=== PATIENT | female | born 1985 | race Caucasian/White ===

== ENCOUNTER 2020-01-17 06:04 | Inpatient (IN) | payer OTHER, SELFPAY ==
[2020-01-17] VITALS (90 sets, daily range): BP systolic 95–136; BP diastolic 40–93; PULSE 54–101; RESP 15–16; TEMP 36.3–36.9; O2SAT 97–100; BMI 31.4
--- NOTE | 2020-01-17 06:04 | LDADM ---
This patient, Michelle Berry, was admitted to Labor/Delivery/Recovery 106 on 01/17/20 at 06:04. Plans for labor, pain management and were discussed with patient. Patient/family oriented to hospital policies and general routines including ID bracelet, bed and alarms, visiting hours, pain management, procedures, bathroom and other care routines, personal items, smoking policy, room service/diet and guest tray routines, security routines, and visiting hours. Patient/Family are encouraged to report perceived risks to care and to ask questions if they do not understand what they are told or what they should do. See OBIX for further documentation.
[2020-01-17 06:58] LABS: Basophils Percent Auto 0.4 % (0.2-1.2); Eosinophils Absolute Auto 0.1 K/mm3 (0-0.3); Eosinophils Percent Auto 0.9 % (0-4.4); Hematocrit 36.6 % (37.0-47.0); Hemoglobin 12.2 g/dL (12.0-15.0); Immature Granulocyte Absolute 0.16 K/mm3 (0.00-0.031); Immature Granulocyte Percent A 1.5 % (0-0.5); Lymphocytes Percent Auto 16.7 % (18.3-44.2); Mean Corpuscular HGB Conc 33.3 g/dl (32-36); Mean Corpuscular Hemoglobin 30.8 pg (26-34); Mean Corpuscular Volume 92.4 fl (80-100); Mean Platelet Volume 11.5 fl (7.4-10.4); Monocytes Absolute Auto 0.7 K/mm3 (0.1-0.6); Monocytes Percent Auto 6.6 % (2.6-8.5); Neutrophils Percent Auto 73.9 % (45.5-73.1); Platelet Count Result 186 k/mm3 (150-375); Red Blood Count 3.96 M/mm3 (4.2-5.4); Red Cell Distribution Width 12.5 % (11.5-14.5); White Blood Count 10.8 K/mm3 (4.5-10.0)
[2020-01-17] MEDS: LACTATED RINGERS 1,000 ML 125 ML IV CONT ×2 (07:09→08:14)
[2020-01-17] MEDS: OXYTOCIN 30 UNITS/NS 500 ML 30 UNITS/500 ML BAG IV CONT (07:10)
--- NOTE | 2020-01-17 07:13 | WPDANESEPP ---
Anes - Eval Pre Procedure Procedure: Labor epidural Date/Time: 01/17/20 07:13 Surgeon: beatriz Preop Diagnosis: pain during labor Pre Op Diagnosis: Induction of Labor Patient Data Age: 34 Gender: F Height: 1.63 m Weight: 83 kg Last Vital Signs Pulse 81 01/17/20 07:00 BP 113/77 01/17/20 07:00 Allergies Allergy/AdvReac Type Severity Reaction Status Date / Time No Known Allergies Allergy Mild Unverified 10/05/17 14:48 Home Medications Medication Instructions Recorded Confirmed Type PNV cmb#95-ferrous fumarate-FA 1 tablet PO DAILY 12/26/19 12/26/19 History [] Laboratory Tests 01/17/20 01/17/20 06:51 06:51 WBC 10.8 K/mm3 H K/mm3 (4.5-10.0) RBC 3.96 M/mm3 L M/mm3 (4.2-5.4) Hgb 12.2 g/dL g/dL (12.0-15.0) Hct 36.6 % L % (37.0-47.0) MCV 92.4 fl fl (80-100) MCH 30.8 pg pg (26-34) MCHC 33.3 g/dl g/dl (32-36) RDW 12.5 % % (11.5-14.5) Plt Count 186 k/mm3 k/mm3 (150-375) MPV 11.5 fl H fl (7.4-10.4) Immature Gran % (Auto) 1.5 % H % (0-0.5) Neut % (Auto) 73.9 % H % (45.5-73.1) Lymph % (Auto) 16.7 % L % (18.3-44.2) [place] % (Auto) 6.6 % % (2.6-8.5) Eos % (Auto) 0.9 % % (0-4.4) Baso % (Auto) 0.4 % % (0.2-1.2) Lymph # (Auto) 1.80 K/mm3 K/mm3 (0.9-3.2) [place] # (Auto) 0.7 K/mm3 H K/mm3 (0.1-0.6) Eos # (Auto) 0.1 K/mm3 K/mm3 (0-0.3) Baso # (Auto) 0.0 K/mm3 K/mm3 (0.0-0.1) Abs Immat Gran (auto) 0.16 K/mm3 H K/mm3 (0.00-0.031) Absolute Neuts (auto) 8.0 K/mm3 H K/mm3 (1.3-6.7) Absolute Nucleated RBC 0.0 K/mm3 K/mm3 (0.0-0.012) Nucleated RBC % 0.0 % % (0.0-0.2) RPR Pending Patient hx anesthesia problems: none Family hx anesthesia problems: none PMF Family History Family History (Updated 12/26/19 @ 14:32 by Luis Alberto Tucker RN) Other No pertinent family history Social History Social History Smoking status: Never smoker Second hand tobacco smoke exposure: No Substance use: never Gender identity (if verbalized by the patient): Female Spiritual care concerns: No Exam Day of Procedure 01/17/20 07:13
--- NOTE | 2020-01-17 08:57 | WPDHPUPDATE1 ---
History and Physical Update Update Date/Time: 01/17/20 08:57 AROM - clear /-2 this patient is a 34-year-old multiparous female who presents for induction of labor. Elective induction. She is multiparous female at 39 weeks History and Physical has been reviewed, including an updated exam of the patient. There are NO changes in the patient's condition. Risks, benefits, and alternatives have been discussed and questions answered. Patient agrees to proceed with procedure.
--- NOTE | 2020-01-17 12:04 | PM.OBPRVD ---
OB - Delivery Note Procedure Delivery date: 01/17/20 Procedure: Intrapartal events: None Induction method: AROM and per pitocin protocol Delivery monitor: external FHT and external uterine Route of delivery: Laceration description: Periurethral - 2nd Degree Delivery repair: vicryl Specimen: No Estimated blood loss (mL): 100 Anesthesia type: Epidural Disposition: floor [place] Baby Date of : 01/17/20 Time of : 11:51 Weeks of gestation at delivery: 39 Infant gender: Female Weight (pounds): 8 Weight (ounces): 6 presentation: vertex position: Left Occiput Anterior Placenta delivery description: Spontaneous cord vessel description: 3 Vessels score one minute: 8 score five minutes: 9
[2020-01-17] MEDS: OXYTOCIN 30 UNITS/NS 500 ML 30 UNITS/500 ML BAG 125 UNITS IV CONT (12:30)
[2020-01-17 13:21] LABS: Rapid Plasma Reagin Non-Reactive (NonReactive)
[2020-01-17] MEDS: BENZOCAINE 20% AER SPR (*SP) 56 GM CAN 1 SPRAY TOPICAL (14:31)
[2020-01-17] MEDS: WITCH HAZEL 40 PADS 1 PAD TOPICAL (14:31)
--- NOTE | 2020-01-17 15:15 | PC.NURSE ---
Patient transferred to post room # 292 . Support person present. Oriented to unit, room, information board, rooming in, admission packet and security measures. Patient verbalizes understanding.
[2020-01-17] MEDS: IBUPROFEN 600 MG TABLET PO (16:19)
[2020-01-17] MEDS: ONDANSETRON INJ 4 MG/2 ML VIAL IV PUSH (16:28)
--- NOTE | 2020-01-17 18:22 | PC.NURSE ---
Pt called out at approx 1600 stating that she was having pain mid back that went to the front of her chest. Pt denies any SOB but states it hurts when she breathes in. Pt also states that she felt nauseas. This RN brought pt a tungin and a rodrigo. Informed pt that if pain continues to get worse of pt becomes SOB to call out to nurses station. Informed oncoming nurse of this issue
[2020-01-18 04:13] LABS: Hematocrit 34.8 % (37.0-47.0); Hemoglobin 11.4 g/dL (12.0-15.0)
--- NOTE | 2020-01-18 07:53 | PM.OBPNVD ---
OB - PN: Subj Subjective Date/time seen: 01/18/20 07:53 OB - PN: Obj Data Labs CBC & Chem 7: 01/18/20 04:05 Labs: Laboratory Results - last 24 hr 01/17/20 01/17/20 01/18/20 06:51 06:51 04:05 Hgb 11.4 L Hct 34.8 L RPR Non-reactive Blood Type A Positive Antibody Screen Negative OB - PN A/P Assessment and Plan (1) Vaginal delivery: Code(s): O80 - Encounter for full-term uncomplicated delivery Status: Acute Plan day: 1 Plan: routine care and discharge home (F/U in 4 weeks) Time Spent With Patient Time: Total time spent is greater than 50% in coordination of care (as documented) at patient's floor/unit and/or counseling patient: Time with patient: less than 15 minutes Review of Systems Review of Systems: All systems reviewed & are unremarkable except as noted in HPI and below Exam Narrative: Exam Narrative: Fundus firm and vaginal flow controlled. Const: General: comfortable Resp: Effort & Inspection: normal respiratory effort Psych: Appearance: grossly normal Affect: normal affect Attitude: cooperative Judgement: Good judgement present (Psych)
[2020-01-18 08:40] VITALS: BP 129/73; PULSE 60; RESP 18; TEMP 37.4; O2SAT 99
--- NOTE | 2020-01-18 08:53 | WPDANLDPN2 ---
Anes-Prog Note L&D Date/Time: 01/18/20 08:53 Comfortable throughout: labor and delivery Neuraxial method: epidural Epidural/Spinal procedure site: clean & non-tender Neuro status: Neuro function grossly intact. Cardiovascular status: normal Respiratory status: normal Airway patency: baseline Mental status: baseline Post-Op hydration status: normal Vital Signs: Last Vital Signs Temp 36.3 C L 01/17/20 18:42 Pulse 70 01/17/20 18:42 Resp 16 01/17/20 18:42 BP 128/78 01/17/20 18:42 Pulse Ox 98 01/17/20 18:42 Post-procedural complaints: none Patient feedback: Patient satisfied with anesthetic care.
[2020-01-20 11:05] VITALS: BP 128/80; PULSE 68; RESP 22
--- NOTE | 2020-02-06 20:47 | P.DS_ITS ---
DS: Admitting Diagnosis Admitting Diagnosis Admitting Diagnosis: Encounter for supervision of normal , unspecified, third trimester OB - DS: Summary OB Procedures : None OB Procedures Intrapartum: Spontaneous Vag Delivery OB Procedures: : None Peripartum Data Infant Delivery Method: Natural Vaginal Time Spent with Patient Time attestation: Total time spent providing and/or coordinating discharge services: Discharge Plan Discharge Attending physician on discharge: Tobi Richard Consulting providers: Yana Melo Discharging Clinician: Yana Melo Patient Disposition: Home, Self-Care Activity: pelvic rest Diet: as tolerated Discharge Instructions: Education: Mom and Baby Guide Given to: Mother Follow-Up: Call your delivering provider's office for an appointment to be seen in: 1 Week Mom and baby should come to the [facility] for the follow-up appointment. Appointment Date/Time: January 20, 2020 at 11:00 am What to expect at your follow-up visit: Blood Pressure Check Physical Assessment Call [phone] if you are unable to keep your appointment time. BREAST CARE: 1. Wear a snug supportive bra. 2. For engorgement discomfort: Bottle Feeding: A. May apply ice packs EPISIOTOMY/PERINEAL CARE: 1. Until bleeding stops, use your rashi bottle after urinating 2. Change your pad frequently throughout the day 3. You may take sitz baths several times a day (fill your bathtub with warm water and soak for 20 minutes.) Do NOT bathe in the water 4. No tub baths until seen by your physician - You may shower ACTIVITY: 1. Rest as much as possible. 2. Do not exercise or lift anything heavier than your baby (such as laundry or other children.) 3. Avoid stairs or driving as much as possible. 4. Do not put anything into the vagina. No douching, tampons, or sexual activity until seen by physician. NOTIFY PHYSICIAN IF YOU HAVE ANY QUESTIONS OR IF ANY OF THE FOLLOWING SYMPTOMS OCCUR: 1. If your episiotomy or incision becomes red, swollen, or more painful than what you have experienced in the hospital. 2. If your vaginal bleeding becomes foul smelling. 3. If your vaginal bleeding becomes more heavy than a period or if your bleeding changes from pink to bright red. However, you may pass an occasional walnut- sized clot once or twice for the first week . 4. If you experience a sharp, shooting pain in you calves. 5. If you discover a hard, reddened area on your breast or if you experience flu-like symptoms. DIET: 1. Eat regular, well-balanced meals. 2. Drink plenty of fluids daily. If , drink to thirst. Stand Alone Forms: General Discharge Information Follow-up/Referrals: Tobi Richard MD [Physician] - Discharge Medications: Continued PNV cmb#95-ferrous fumarate-FA [] 28 mg iron- 800 mcg Tablet 1 tablet PO DAILY RF: 0 Date of admission: 01/17/20 06:04 Primary Care Provider: Chris Velásquez Admitting Provider: Tobi Richard Discharge Date/Time: 01/18/20 13:18 Attending physician on admission: Tobi Richard
== END 2020-01-18 13:18 | disposition home or self-care (01) | DRG 807 ==
LOC: ANHLDR 06:11 → ANHOB2 14:48
PROVIDERS: Admitting Provider Obstetrics & Gynecology; PCP Family Medicine; Visit Provider Obstetrics & Gynecology
DX: O70.1 Second degree perineal laceration during delivery (principal); Z37.0 Single live birth; Z3A.40 40 weeks gestation of pregnancy
CPT/HCPCS: 36415; 85014; 85018; 85025; 86592; 86850; 86900; 86901; A9270; J2405; J2590; J2795; J7120

== ENCOUNTER 2020-07-09 11:34 | Emergency (ER) | payer OTHER, SELFPAY ==
[2020-07-09 11:45] VITALS: BP 116/64; PULSE 67; RESP 16; TEMP 36.6; O2SAT 100
--- NOTE | 2020-07-09 11:46 | ED.SKABFB ---
HPI - Skin/Abscess/Foreign Bdy General Chief complaint: Skin/Abscess/Foreign Body Stated complaint: Rash Time Seen by Provider: 07/09/20 11:47 Source: patient and RN notes reviewed Mode of arrival: ambulatory Limitations: no limitations History of Present Illness HPI narrative: 34 year old female who presents to [facility] care with complaints of intermittent rash noted for the past 8 months which has increased in the past 1 week. Patient states that she has had this hive type of raised rash intermittently to her left clavicle since delivery of her daughter. For the past week she has had this raised hive type of rash also on her upper back, right clavicle area and on her left neck which is itchy. Patient states that she has used hydrocortisone cream to rash but concerned due to spread. Patient states that she also had rash after other pregnancies which finally resolved. 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 MD complaint: rash Onset (ago): month(s) (intermittent with increase 1 week ago.) Tetanus up to date: yes Location: neck, chest (upper) and back Severity: moderate Quality: pruritic Relieving factors: topical medication Associated symptoms: denies other symptoms Related Data Home Medications Medication Instructions Recorded Confirmed norethindrone ac-eth estradiol 1 tablet PO DAILY 07/09/20 07/09/20 [June08/29 (21)] Allergies Allergy/AdvReac Type Severity Reaction Status Date / Time No Known Allergies Allergy Mild Verified 07/09/20 11:47 Review of Systems Review of Systems: Narrative: CONSTITUTIONAL: Denies fever, chills, or sweats. EYES: Denies visual changes, redness, or discharge. ENT: Denies rhinorrhea, congestion, sore throat, or otalgia. CARDIOVASCULAR: Denies chest pain, palpitations, or edema. RESPIRATORY: Denies cough or dyspnea. GASTROINTESTINAL: Denies abdominal pain, nausea, vomiting, or diarrhea. GENITOURINARY: Denies dysuria or hematuria. SKIN: Positive for rash or itching to clavicle areas, left neck and upper back MUSCULOSKELETAL: Denies back pain, joint pain, or myalgia. NEUROLOGIC: Denies headache, numbness, or weakness. PSYCHIATRIC: Denies anxiety or depression. All systems reviewed & are unremarkable except as noted in HPI and below PMFSH Past Medical History Medical History (Updated 07/09/20 @ 14:31 by Sophia Isabel NP) Normal vaginal delivery X3 Surgical History Surgical History (Updated 07/09/20 @ 12:08 by Sophia Isabel NP) H/O left knee surgery Family History Family History (Updated 07/09/20 @ 14:31 by Sophia Isabel NP) Father Carcinoma of colon Grandparent Breast cancer Other Diabetes mellitus Social History Social History Smoking status: Never smoker Second hand tobacco smoke exposure: No Substance use: never Gender identity (if verbalized by the patient): Female Spiritual care concerns: No Comments At time of signature, agree with nursing past medical, surgical, social and family history. There is no relevant family history pertinent to the presenting complaint Exam Narrative: Exam Narrative: GENERAL: Well-appearing, well-nourished, and in no acute distress. HEAD: Normocephalic, atraumatic. EYES: PERRLA and EOMI. ENT: Nares clear, no rhinorrhea or epistaxis. Mucous membranes moist.TM's normal no redness of throat, no exudates or lesions. NECK: Supple.no lymphadenopathy CHEST: Clear to auscultation. No respiratory distress.SAO2 100% on room air HEART: Regular rate and rhythm. No murmur heard. Normal peripheral pulses. ABDOMEN: Soft, nontender, nondistended, normal active bowel sounds. EXTREMITIES: Normal range of motion. No edema. SKIN: Warm, dry pink raised circul
== END 2020-07-09 12:24 | disposition home or self-care (01) ==
PROVIDERS: Emergency Provider Registered Nurse; PCP Family Medicine
DX: R21 Rash and other nonspecific skin eruption (principal)
CPT/HCPCS: 99213; G0463

== ENCOUNTER 2021-10-06 11:11 | Emergency (ER) | payer BC, SELFPAY ==
[2021-10-06 11:45] VITALS: BP 112/70; PULSE 80; RESP 16; TEMP 36.4; O2SAT 100
--- NOTE | 2021-10-06 11:53 | ED.EYEPROB ---
HPI - Eye Problem General Chief complaint: Eye Problems Stated complaint: Rt Eye Irritation Time Seen by Provider: 10/06/21 11:41 Source: patient and RN notes reviewed Mode of arrival: ambulatory Limitations: no limitations History of Present Illness HPI Narrative: Patient presents today complaining of right eye redness and yellow/green drainage since yesterday. Denies pain, foreign body sensation, vision changes, photophobia, recent illness. She does wear contacts. She has not tried any okxq-dlu-fkcayin treatment prior to arrival. MD chief complaint: eye redness (Drainage) Related Data Allergies Allergy/AdvReac Type Severity Reaction Status Date / Time No Known Allergies Allergy Mild Verified 10/06/21 11:21 Review of Systems Review of Systems: CONSTITUTIONAL: Denies body aches, fever, chills, or sweats. EYES: Denies visual changes. + Right eye redness and drainage ENT: Denies rhinorrhea, congestion, sore throat, or otalgia. CARDIOVASCULAR: Denies chest pain, palpitations, or edema. RESPIRATORY: Denies cough or dyspnea. GASTROINTESTINAL: Denies abdominal pain, nausea, vomiting, or diarrhea. GENITOURINARY: Denies dysuria or hematuria. SKIN: Denies rash, itching, or wounds. MUSCULOSKELETAL: Denies back pain, joint pain, or myalgia. NEUROLOGIC: Denies headache, numbness, tingling, or weakness. PSYCH: Denies depression or anxiety. [facility] Past Medical History Medical History Normal vaginal delivery X3 Surgical History Surgical History H/O left knee surgery Family History Family History Father Carcinoma of colon Grandparent Breast cancer Other Diabetes mellitus Social History Social History Smoking status: Never smoker Second hand tobacco smoke exposure: No Alcohol intake: current Substance use: never Substance use type: does not use Gender identity (if verbalized by the patient): Female Sexual Orientation (if Verbalized by the Patient): Straight or Heterosexual Spiritual care concerns: No Comments At time of signature, I have reviewed and agree with nursing past medical, surgical, social and family history unless otherwise noted. Please see nursing chart for further information. There is no relevant family history pertinent to the presenting complaint Exam Narrative: GENERAL: Well-appearing, well-nourished, and in no acute distress. HEAD: Normocephalic, atraumatic. EYES: EOMI. PERRL. Right eye: Severely injected conjunctiva with mild yellow purulent discharge. Lids and lashes normal. Left eye normal. ENT: Mucous membranes pink and moist. NECK: Normal AROM. CHEST: No respiratory distress. EXTREMITIES: Normal range of motion. No edema. SKIN: Warm, dry, no rash. Capillary refill normal. Normal skin turgor. NEURO: No focal deficits. Alert and oriented x3. Gait steady. PSYCH: Normal affect. No signs of depression or anxiety. Course Course Level of Care: Express Care Visit Vital Signs Vital signs: Vital Signs Temperature 97.5 F L 10/06/21 11:45 Pulse Rate 80 10/06/21 11:45 Respiratory Rate 16 10/06/21 11:45 Blood Pressure 112/70 10/06/21 11:45 Pulse Oximetry 100 10/06/21 11:45 Temperature 97.5 F L 10/06/21 11:45 Pulse Rate 80 10/06/21 11:45 Respiratory Rate 16 10/06/21 11:45 Blood Pressure 112/70 10/06/21 11:45 Pulse Oximetry 100 10/06/21 11:45 Reviewed MDM - Eye Problem Differential Diagnosis Differential diagnosis: Likely corneal abrasion, conjunctivitis and periorbital cellulitis Critical Care Time Critical Care Time Critical Care Time: No Discharge Plan Discharge Clinical Impression: Acute bacterial conjunctivitis of right eye Patient Disposition: Home, Self-Care Condition: St
== END 2021-10-06 11:58 | disposition home or self-care (01) ==
PROVIDERS: Emergency Provider Nurse Practitioner; PCP Family Medicine
DX: H10.31 Unspecified acute conjunctivitis, right eye (principal)
CPT/HCPCS: 99213; G0463

== ENCOUNTER 2021-10-17 01:49 | Day surgery (SDC) | payer BC, SELFPAY ==
[2021-10-08 13:24] VITALS: BMI 25.0
--- NOTE | 2021-10-16 12:21 | WPDANESEPPF ---
Anes - Initial Pre Proc Eval Procedure: Operation Date: 10/17/21 12:30 Proposed Procedures p Colonoscopy - Rubén Moore MD Date/Time: 10/16/21 12:21 Surgeon: Rubén Moore MD Pre Op Diagnosis: abnormal stool, family hx colon cancer Patient Data Age: 35 Gender: F Height: 1.63 m Weight: 66.3 kg Allergies Allergy/AdvReac Type Severity Reaction Status Date / Time No Known Allergies Allergy Mild Verified 10/17/21 10:51 Home Medications Medication Instructions Recorded Confirmed Type ciprofloxacin HCl 1 drp RIGHT EYE Q4H 7 Days #10 ml 10/06/21 10/17/21 Rx Patient hx anesthesia problems: none Family hx anesthesia problems: none Results Review: All pre-operative results and documents have been reviewed as part of the pre-operative evaluation. PMFSH Past Medical History Medical History Normal vaginal delivery X3 Surgical History Surgical History H/O left knee surgery Family History Family History Father Carcinoma of colon Grandparent Breast cancer Other Diabetes mellitus Social History Social History Smoking status: Never smoker Second hand tobacco smoke exposure: No Alcohol intake: current Drinks per week: 2 Substance use: never Substance use type: does not use Living arrangements: with family Gender identity (if verbalized by the patient): Female Sexual Orientation (if Verbalized by the Patient): Straight or Heterosexual Spiritual care concerns: No Anes - Eval Final PreProcedure Day of Procedure 10/16/21 12:21 Patient weight: overweight Heart: regular rate and rhythm Lungs: clear to auscultation and normal air movement Airway: Mallampati scale class II Neurological: alert and oriented Last oral intake: >/= 8 hours ASA classification: II Emergent: no Anesthetic plan: proceed Anesthesia type and monitoring: general GIVS and standard monitoring Results Review: All pre-operative results and documents have been reviewed as part of the pre-operative evaluation. Informed Consent: The patient's anesthetic plan and its attendant risks and benefits were discussed with the patient/family/POA. Questions were solicited and answers provided to the satisfaction of the patient/family/POA.
[2021-10-17 10:51] VITALS: BP 108/84; PULSE 91; RESP 18; TEMP 36.4; O2SAT 100
[2021-10-17] MEDS: LACTATED RINGERS 1,000 ML 150 ML IV CONT (11:00)
--- NOTE | 2021-10-17 11:37 | WPDGICN ---
Assessment and Plan Assessment and plan (1) Family history of carcinoid tumor: Code(s): Z80.9 - Family history of malignant neoplasm, unspecified Status: Acute Assessment and Plan: Patient has a family history of carcinoid tumor in her father. Family history also includes ulcerative colitis in her father and Crohn's disease in her brother. For these reasons screening colonoscopy is to be performed. Further recommendations will be given after endoscopy. (2) Chronic diarrhea: Code(s): K52.9 - Noninfective gastroenteritis and colitis, unspecified Status: Acute Assessment and Plan: Patient has chronically loose stools. For this reason colonoscopy will be performed. Fiber supplements are encouraged. Because of family history of IBD colonoscopy has been suggested. Fiber supplements initially but further rectal workup may be required pending results. GI Consult Note Consult date/time: 10/17/21 11:37 HPI: Michelle Berry is a 35 year old female Presents for screening colonoscopy. Patient has long history of loose diarrhea stools. She denies any bleeding. Has minimal abdominal pain. She does take fiber supplements occasionally with inconsistent results. Family history is significant that her father had ulcerative colitis and ultimately found to have a carcinoid tumor. Her brother was identified as having Crohn's disease. Patient presents today for screening colonoscopy because of family history of IBD as well as a family history of a carcinoid tumor. Patient also wishes some evaluation of her diarrhea. Review of Systems Review of Systems: All systems reviewed & are unremarkable except as noted in HPI and below PMFSH Past Medical History Medical History Normal vaginal delivery X3 Surgical History Surgical History H/O left knee surgery Family History Family History Father Carcinoma of colon Grandparent Breast cancer Other Diabetes mellitus Social History Social History Smoking status: Never smoker Second hand tobacco smoke exposure: No Alcohol intake: current Drinks per week: 2 Substance use: never Substance use type: does not use Living arrangements: with family Gender identity (if verbalized by the patient): Female Sexual Orientation (if Verbalized by the Patient): Straight or Heterosexual Spiritual care concerns: No Meds Home Medications and Allergies Home Medications Medication Instructions Recorded Confirmed Type ciprofloxacin HCl 1 drp RIGHT EYE Q4H 7 Days #10 ml 10/06/21 10/17/21 Rx Allergies Allergy/AdvReac Type Severity Reaction Status Date / Time No Known Allergies Allergy Mild Verified 10/17/21 10:51 Vital Signs Vital Signs - 24 hr 10/17/21 10:51 Temperature 97.5 F L Pulse Rate 91 Respiratory Rate 18 Blood Pressure 108/84 Pulse Oximetry 100 Exam Narrative: Physical exam reveals patient to be alert. Vital signs stable. HEENT exam is unremarkable. Patient is anicteric. Lungs are clear to auscultation and percussion. Heart is without murmur or extra sounds. Abdominal exam bowel sounds are present soft nontender with no organomegaly. Digital external rectal exam is normal.
[2021-10-17 12:08] VITALS: BP 99/61; PULSE 74; RESP 14; O2SAT 100
[2021-10-17 12:18] VITALS: BP 106/73; PULSE 67; RESP 19; O2SAT 100
[2021-10-17 12:28] VITALS: BP 98/70; PULSE 62; RESP 18; O2SAT 100
== END 2021-10-17 12:38 | disposition home or self-care (01) ==
PROVIDERS: PCP Family Medicine; Visit Provider Internal Medicine Gastroenterology
PROC: 0DJD8ZZ Inspection of Lower Intestinal Tract, Via Natural or Artificial Opening Endoscopic (ICD-10-PCS; CPT 45378; principal; 2021-10-17 12:30)
DX: K52.9 Noninfective gastroenteritis and colitis, unspecified (principal); K64.8 Other hemorrhoids
CPT/HCPCS: 45380; 88305; J2704; J7120

== ENCOUNTER 2022-06-16 08:51 | Emergency (ER) | payer BC, SELFPAY ==
--- NOTE | ~2022-06-16 | CT_ITS ---
EXAMINATION: CT abdomen pelvis w con INDICATION: Abdominal pain TECHNIQUE: Computed tomographic images of the abdomen and pelvis were obtained after the administrati on of 100 cc of Omnipaque 350 intravenous contrast. The dose-length product (DLP) was 314.37 mGy-cm. Automated exposure control and iterative reconstruction technique were employed. COMPARISON: None available FINDINGS: The lung bases are clear. The heart size is normal. Punctate calcifications in an otherwise normal spleen likely represent healed granulomatous disease. The liver, pancreas, gallbladder, and a drenal glands are normal. The kidneys are unremarkable. No pathologically enlarged abdominal or pelvi c lymph nodes are identified. There is no free intraperitoneal gas or evidence of bowel obstruction. There is a small volume of free fluid in the pelvis. The appendix is normal. A corpus luteum is noted in the right ovary. IMPRESSION: 1. No CT correlate for the patient's symptoms. Reviewed, dictated and finalized at location B. UCT TECHNICIAN
--- NOTE | ~2022-06-16 | US_ITS ---
EXAMINATION: US pelvic complete w TV DATE: 06/16/2022 11:45 INDICATION: Left lower quadrant abdominal pain TECHNIQUE: Multiple transabdominal and endovaginal sonographic images of the pelvis were obtained. COMPARISON: CT from today FINDINGS: The uterus measures 6.7 x 4.5 x 5.2 cm. The endometrial complex measures 5 mm. The right ov lucho measures 3.4 x 2.5 x 3 cm. The left ovary measures 2.6 x 1.7 x 2.5 cm. There is normal vascular f low in the ovaries. There is a small amount of likely physiologic free fluid in the pelvis. IMPRESSION: 1. No sonographic correlate for the patient's symptoms. Reviewed, dictated and finalized at location B. [employer]Y IN[employer]CTOR
[2022-06-16 08:53] VITALS: BP 145/95; PULSE 78; RESP 12; TEMP 36.7; O2SAT 100
--- NOTE | 2022-06-16 09:27 | ED.GENADULT ---
HPI - General Adult General Chief complaint: Abdominal Pain Stated complaint: ABD PAIN Time Seen by Provider: 06/16/22 09:22 Source: RN notes reviewed History of Present Illness HPI narrative: Patient presents emergency room from home for abdominal pain. Patient states the pain began proximally 3 days ago. The pain is located in left lower quadrant and radiates around to the back is described as aching in nature states the pain will come and go and will completely go away at times and return states is associated with nausea and states that the pain became more severe this morning. She denies any fevers or chills chest pain shortness of breath vomiting diarrhea or any other symptoms states she not take anything for the pain. Denies any risk of sexually transmitted disease denies any vaginal bleeding or discharge Related Data Allergies Allergy/AdvReac Type Severity Reaction Status Date / Time No Known Allergies Allergy Mild Verified 10/17/21 10:51 Review of Systems Review of Systems: Gen.: Denies fevers or chills ENT: Denies congestion Respiratory: Denies shortness of breath or cough CV: Denies chest pain or palpitations GI: See HPI denies burning, urgency, frequency or hematuria Musculoskeletal: Denies back pain or muscle pain Neuro: Denies numbness, tingling, weakness or focal weakness Skin: Denies rash Except as documented, all other systems reviewed and negative PMF Past Medical History Medical History Normal vaginal delivery X3 Surgical History Surgical History H/O left knee surgery Family History Family History Father Carcinoma of colon Grandparent Breast cancer Other Diabetes mellitus Social History Social History Smoking status: Never smoker Second hand tobacco smoke exposure: No Alcohol intake: current Drinks per week: 2 Substance use: never Substance use type: does not use Gender identity (if verbalized by the patient): Female Sexual Orientation (if Verbalized by the Patient): Straight or Heterosexual Spiritual care concerns: No Exam Narrative: APPEARANCE: No acute distress, nontoxic, resting in bed EYES: EOMI HEENT: Normocephalic, atraumatic, OMM RESPIRATORY: No respiratory distress Clear to auscultation bilaterally with no rhonchi wheezing or rales. CARDIOVASCULAR: Regular rate and rhythm without murmurs rubs or gallops. ABDOMINAL: Soft, nondistended tender palpation left lower quadrant no chest right lower quadrant, right upper quadrant left lower quadrant no rebound or guarding MUSCULOSKELETAl: Moves all extremities. No clubbing, cyanosis or edema. NEURO: Awake and alert. Following commands, speech normal, no focal deficits SKIN:: Warm, dry. No rashes lesions or abrasions PSYCHIATRIC: Normal affect/mood, Course Course Emergency Course: Patient states that they are feeling much better at this time. States abdominal pain has improved. Repeat abdominal exam shows the patient's abdomen to be soft with no surgical abdomen present.. Discussed with patient results of workup and diagnosis. Discussed need for follow-up with primary care physician, reasons to return to the emergency department in proper use of medication. Patient understands and agrees to current treatment plan Vital Signs Vital signs: Vital Signs Temperature 98.1 F 06/16/22 08:53 Pulse Rate 78 06/16/22 08:53 Respiratory Rate 12 06/16/22 08:53 Blood Pressure 145/95 H 06/16/22 08:53 Pulse Oximetry 100 06/16/22 08:53 Oxygen Delivery Room Air 06/16/22 08:53 Temperature 98.1 F 06/16/22 08:53 Pulse Rate 78 06/16/22 08:53 Respiratory Rate 12 06/16/22 08:53 Blood Pressure 145/95 H 06/16/22 08:53 Pulse Oximetry 100 06/16/22 08:53 Oxygen Delivery
[2022-06-16] MEDS: ONDANSETRON INJ 4 MG/2 ML VIAL IV PUSH (09:47)
[2022-06-16] MEDS: KETOROLAC 30 MG/ML VIAL (*BKC) IV PUSH (09:47)
[2022-06-16] MEDS: SODIUM CHLORIDE 0.9% IV 1,000 ML 999 ML IV CONT (09:48)
[2022-06-16 09:52] LABS: Basophils Percent Auto 0.3 % (0.2-1.2); Eosinophils Absolute Auto 0.1 K/mm3 (0-0.3); Eosinophils Percent Auto 0.5 % (0-4.4); Hematocrit 41.3 % (37.0-47.0); Hemoglobin 13.5 g/dL (12.0-15.0); Immature Granulocyte Absolute 0.06 K/mm3 (0.00-0.031); Immature Granulocyte Percent A 0.5 % (0-0.5); Lymphocytes Absolute Auto 1.32 K/mm3 (0.9-3.2); Lymphocytes Percent Auto 11.4 % (18.3-44.2); Mean Corpuscular HGB Conc 32.7 g/dl (32-36); Mean Corpuscular Hemoglobin 31.2 pg (26-34); Mean Corpuscular Volume 95.4 fl (80-100); Mean Platelet Volume 9.9 fl (7.4-10.4); Monocytes Absolute Auto 0.7 K/mm3 (0.1-0.6); Monocytes Percent Auto 6.3 % (2.6-8.5); Neutrophils Absolute Auto 9.4 K/mm3 (1.3-6.7); Platelet Count Result 307 k/mm3 (150-375); Red Blood Count 4.33 M/mm3 (4.2-5.4); Red Cell Distribution Width 12.8 % (11.5-14.5); White Blood Count 11.6 K/mm3 (4.5-10.0)
[2022-06-16 09:52] LABS: Appearance Urine Clear (Clear); Bilirubin Urine Negative (Negative); Blood Urine 1+ (Negative); Color Urine Yellow (Yellow); Glucose Urine UA Negative (Negative); Ketones Urine Negative (Negative); Leukocyte Esterase Ur Negative LEU/UL (Negative); Nitrate Urine Negative (Negative); Protein Urine Negative (Negative); Specific Grav Ur 1.025 (1.001-1.035); Urobilinogen Urine 0.2 mg/dL (<2.0); pH Urine 5.5 (5.0-9.0)
[2022-06-16 09:57] LABS: Mucus Urine Rare /lpf; RBC Urine 0-2 /hpf (0-2); Squamous Epithelial Cell Urine Moderate /hpf (Few); WBC Urine 0-3 /hpf
[2022-06-16 10:04] LABS: Alanine Aminotransferase 20 U/L (6-35); Albumin Level 4.8 g/dL (3.5-5.1); Alkaline Phosphatase 50 U/L (38-126); Anion Gap 10 mmol/L (8-16); Aspartate Amino Transferase 32 U/L (14-36); Bilirubin,Total 0.9 mg/dL (0.2-1.3); Blood Urea Nitrogen 8 mg/dL (7-17); Calcium 8.9 mg/dL (8.4-10.2); Carbon Dioxide 25 mmol/L (22-30); Chloride 101 mmol/L (98-107); Estimated Glomerular Filt Rate > 60; Glucose 99 mg/dL (65-110); Lipase 95 U/L (23-300); Potassium 4.4 mmol/L (3.4-5.0); Sodium 136 mmol/L (137-145)
[2022-06-16 10:06] LABS: Add Urine Microscopic? YES
== END 2022-06-16 14:35 | disposition home or self-care (01) ==
PROVIDERS: Emergency Provider Emergency Medicine; PCP Family Medicine
DX: R10.32 Left lower quadrant pain (principal)
CPT/HCPCS: 36415; 74177; 76830; 76856; 80053; 81001; 81025; 83690; 85025; 96361; 96374; 96375; 99284; J1885; J2405; J7030; Q9967

== ENCOUNTER 2023-12-25 11:51 | Outpatient (CLI) | payer BC, SELFPAY ==
--- NOTE | ~2023-12-25 | XR_ITS ---
EXAMINATION: [id number] DATE: 12/25/2023 12:12 INDICATION: Radiculopathy, cervical region. Left neck pain. TECHNIQUE: 3 views of cervical spine including standing views were obtained. COMPARISON: None. FINDINGS: There is kyphosis of cervical spine. There is 2 mm retrolisthesis of C5 on C6. Vertebral ganga dy heights are normal. There is severely decreased disc height at C5-C6. There is moderate facet join t osteoarthritis at C7-T1. There is mild central canal stenosis at C5-C6. No prevertebral soft tissue swelling. IMPRESSION: 1. Severe spondylosis at C5-C6. Reviewed, dictated and finalized at location E.
--- NOTE | ~2023-12-25 | XR_ITS ---
Left Shoulder Technique: AP and axillary views were obtained. Clinical History: Radiculopathy Findings: No fracture or dislocation is seen. Osseous alignment is anatomic. The glenohumeral and acr omioclavicular joint spaces are preserved. Soft tissues are unremarkable. Impression: Unremarkable left shoulder radiographs. Reviewed, dictated and finalized at [facility]. Impression: Unremarkable left shoulder radiographs.
== END 2023-12-25 11:52 ==
PROVIDERS: PCP Physician Assistant Medical; Visit Provider Physician Assistant Medical
DX: M43.02 Spondylolysis, cervical region (principal); M25.512 Pain in left shoulder
CPT/HCPCS: 72040; 73030